=== PATIENT | male | born 1960 | race Caucasian/White ===

== ENCOUNTER 2023-06-02 05:52 | Day surgery (SDC) | payer OTHER ==
[2023-06-01 08:33] VITALS: BP 119/65
[~2023-06-02] VITALS: Ht 182.9 cm; Wt 100.0 kg
--- NOTE | ~2023-06-02 | OR ---
[facility] [address] [facility] [place] [place] [address] Draft DATE OF OPERATION: 06/02/2023 SURGEON: Abdi Torrez MD, PH.D. PREOPERATIVE DIAGNOSIS: Prostate adenocarcinoma. POSTOPERATIVE DIAGNOSIS: Prostate adenocarcinoma. PROCEDURE: Rectal ultrasound-guided implantation of radioactive iodine-125 seeds into the prostate gland. ANESTHESIA: General. ESTIMATED BLOOD LOSS: Minimal. COMPLICATIONS: None. ANTIBIOTICS: IV levofloxacin. INDICATIONS: Osman Woody is a 62-year-old gentleman who was recently diagnosed with a stage T2c, Gordon grade 4+4=8, PSA 9.09 prostate adenocarcinoma. He was treated with neoadjuvant and concurrent hormone therapy along with external beam radiation to a dose of 45 Gy to the pelvic lymph nodes, seminal vesicles, and prostate gland ending on May 16, 2023. ScapeOAR Hydrogel was also placed between the prostate gland and rectum prior to the start of his radiation. He has elected to proceed with a radioactive seed implant boost. Prescription dose: 110 Gy with iodine-125 seeds with 0.258 mCi seeds. OPERATIVE DESCRIPTION: Following induction of adequate anesthesia, the patient was placed in the treatment planning to dorsal lithotomy position. The perineum was prepped with Betadine and a Garcia catheter was inserted into the bladder without difficulty. The scrotum was elevated onto the abdominal wall and secured with Ioban. The fixation support system PATIENT NAME: OSMAN WOODY OPERATIVE REPORT DATE OF : 62 REPORT #: [id number] PHYSICIAN: ABDI TORREZ MD PCP: LIZ GALICIA PA-C REPORT IS CONFIDENTIAL AND NOT TO BE RELEASED WITHOUT AUTHORIZATION [facility] [address] [place], [place] [address] Draft was fixed to the table and the ultrasound probe was affixed to the system. Transrectal ultrasound examination of the prostate was performed with a 6 megahertz probe, taking sagittal and transverse views to localize the prostate gland and to make sure the images conformed to the preoperative plan. Once the proper angulation and position were obtained, the apparatus was fixed in place. The mormon was then attached to the apparatus. Then, individual preloaded needles were inserted, one needle at a time through the template and perineal skin and into the prostate gland according to the preoperative plan. Each individual needle was identified on the ultrasound images and inserted into position as close as possible to the pretreatment plan on axial images. Two anchor needles were placed initially to help stabilize the prostate gland. Then, starting anteriorly, one row of needles were placed first. The proper depth of each needle was confirmed on sagittal images and also by measuring the distance from the template to the hub of each needle with a ruler. Then, needles were slowly withdrawn with the stylet in place so that stranded seeds were placed in the prostate gland in the proper position. Then, subsequently, rows of needles were placed, one at a time with placement of all the seeds from each row before proceeding to the next row. AP pelvic x-rays were taken periodically to confirm the proper position of the radioactive seeds. The treatment plan called for 72 seeds to be implanted, and a total of 72 seeds were placed into the prostate gland using a total of 20 needles for a total activity of 118.57 mCi. There was minimal bony interference encountered with the anterior needles, but this resolved after we repositioned his legs in a more exaggerated lithotomy position. Following the insertion of the seeds, an AP pelvic x-ray was taken, which revealed seeds to be in the proper position within the pelvis. The patient then had a cystoscopy performed by Dr. Banks (see separate operative report) with no seeds seen in the urethra or bladder. The patient tolerated the procedure well and was taken to the recovery room in good condition. The patient will have a voiding trial prior to discharge. The patient will follow up with me in one month and will also have a CT scan of the pelvis performed for dosimetric evaluation. He was told to phone our office if he has any difficulties or problems. CONDITION: Stable. PATIENT NAME: OSMAN WOODY OPERATIVE REPORT DATE OF : 62 REPORT #: [id number] PHYSICIAN: ABDI TORREZ MD PCP: LIZ GALICIA PA-C REPORT IS CONFIDENTIAL AND NOT TO BE RELEASED WITHOUT AUTHORIZATION [address] [address] [place] Abdi Torrez MD, PH.D. JARAD/MODL /[id number] Copies: ~ PATIENT NAME: OSMAN WOODY KENYON OPERATIVE REPORT DATE OF : 62 REPORT #: [id number] PHYSICIAN: ABDI TORREZ MD PCP: LIZ GALICIA PA-C REPORT IS CONFIDENTIAL AND NOT TO BE RELEASED WITHOUT AUTHORIZATION
[~2023-06-02 05:52] MED LIST: COZAAR25 MG PO; DICLOFENAC SODI75 MG PO; HYDROCODON-ACE1 EA10 PO; LOSARTAN POTASS50 MG PO; TAMSULOSIN HCL0.4 MG PO
[2023-06-02 06:25] VITALS: BP 141/71
--- NOTE | 2023-06-02 10:12 | NUR ---
06/02/23 1012 Sheets,[place] 0957 PT ARRIVED TO PACU ON 6L VIA MASK, PT SNORING AND JAW THRUST USED OFF AND ON TO MAINTAIN AIRWAY. 1002 PT WOKE TO TACTILE STIMULI AND OPENED HIS EYES. PT REORIENTED TO PACU, 1004 O2 MASK REMOVED AND PT REACHING FOR HIS FACE. PT DENIES PAIN AND NAUSEA. 1010 PLAN OF CARE DISCUSSED, PT WAKES OFF AND ON.
[2023-06-02 10:24] VITALS: BP 100/53
--- NOTE | 2023-06-02 10:33 | NUR ---
LE 1025 PATIENT BACK TO ROOM 5. VITAL SIGNS COMPLETE. PATIENT DROWSY BUT ORIENTED. BREATHING EQUAL AND UNLABORED. OXYGEN SATURATIONS ABOVE 90% ON ROOM AIR. PATIENT DENIES PAIN AT THIS TIME. PATIENT STATES "I AM A LITTLE BIT DIZZY BUT NOT NASEATED." PATIENT HAS NO DRAINAGE AT SURGICAL SITE AT THIS TIME. PATIENT AT BEDSIDE. IVF INFUSING. SCD'S ON. CALL LIGHT WITHIN REACH NO FUTHER NEEDS. NO QUESTIONS AT THIS TIME.
[2023-06-02 11:20] VITALS: BP 109/59
--- NOTE | 2023-06-02 12:32 | NUR ---
LE 1115 PATIENT ABLE TO AMBULATE TO THE RESTROOM. PATIENT VOIDED CLEAR AND YELLOW URINE 250 MLS. PATIENT AMBULATED BACK AND TOLERATED IT WELL. PATIENT DENIES PAIN OR BEING NAUSEATED. LE 1135 PATIENT HAS MET DISCHARGE CRITERIA. IV D/C'D WNL. DISCHARGE INSTRUCTIONS GIVEN AND UNDERSTOOD. NO FUTHER NEEDS. PATIENT WAS WHEELED OUT OF THE FACILITY TO PRIVATE AUTO. NO QUESTIONS AT THIS TIME.
--- NOTE | 2023-06-02 14:07 | OR ---
[facility] [address] [place], [place] [address] Signed DATE OF OPERATION: 06/02/2023 SURGEON: Kamar Cm MD PREOPERATIVE DIAGNOSES: 1. Prostate cancer. 2. Need for diagnostic cystoscopy immediately after undergoing brachytherapy for prostate cancer. POSTOPERATIVE DIAGNOSIS: 1. Prostate cancer. 2. Need for diagnostic cystoscopy immediately after undergoing brachytherapy for prostate cancer. 3. No evidence of foreign body present within the bladder or urethra. NAME OF PROCEDURE: Diagnostic cystourethroscopy. ANESTHESIA: General. ESTIMATED BLOOD LOSS: None. COMPLICATIONS: None. SPECIMENS: None. DRAINS: None. INDICATIONS FOR PROCEDURE: Mr. Woody is a very pleasant 62-year-old gentleman, who was diagnosed with prostate cancer earlier this year. He is now currently be being treated by Dr. Don Torrez, and has elected to undergo brachytherapy this morning. I met with him this morning and consented him for diagnostic cystoscopy, which will be performed after the brachytherapy treatment is completed to rule out the presence of any potential residual radioactive seed present within either the bladder or the urethra. He has consented to undergo the Electronically Signed By: KAMAR CM MD 06/02/23 1407 PATIENT NAME: ESVIN WOODY OPERATIVE REPORT DATE OF : 62 REPORT #: [id number] PHYSICIAN: KAMAR CM MD PCP: LIZ GALICIA PA-C REPORT IS CONFIDENTIAL AND NOT TO BE RELEASED WITHOUT AUTHORIZATION [facility] [address], [place] [address] Signed procedure. OPERATIVE FINDINGS: 1. On cystoscopy, there was no evidence of any suspicious masses, lesions, or stones. In particular, there is no evidence of any radioactive seed or other material within the bladder or the urethra. There is diffuse grade 1-2 bladder wall trabeculation present. Bilateral ureteral orifices are noted to be in their normal anatomic location and effluxing clear urine. 2. Ureteroscopy reveals no evidence of any obvious median lobe. There is some mild lateral lobe hypertrophy present. No evidence of any urethral stricture or stenosis. DESCRIPTION OF PROCEDURE: After informed consent was obtained, the patient has taken back to the operating room where he underwent brachytherapy seed placement. He is now still under general anesthetic and his genitalia have been prepped and draped in a standard sterile fashion. Using a flexible cystoscope, I inserted the camera through the patient's urethra and into the bladder under direct visualization. Panendoscopic views of bladder were then obtained. Please see above findings. I then slowly withdrew the camera to get a better look at the bladder neck and prostatic urethra. Please see above findings. The diagnostic cystoscope was then completely removed from the patient's bladder. I did leave some irrigation fluid present behind within the bladder to allow the patient to void on his own after the procedure. The procedure was then terminated. The patient tolerated the procedure well without any complication. He will now be transferred to the postanesthesia care unit in stable condition. MD ANGELICA Santos/KATRIN /[id number] Copies: ~ Electronically Signed By: KAMAR CM MD 06/02/23 1407 PATIENT NAME: BONGESVIN KENYON OPERATIVE REPORT DATE OF : 62 REPORT #: [id number] PHYSICIAN: KAMAR CM MD PCP: LIZ GALICIA PA-C REPORT IS CONFIDENTIAL AND NOT TO BE RELEASED WITHOUT AUTHORIZATION
== END 2023-06-02 11:35 | disposition home or self-care (01) ==
LOC: OPS 05:52 → DS 05:52 → US 07:00 → EDSTATUS 07:00 → OPS 07:00 → NUC 07:30 → OPS 11:35
PROVIDERS: Urology; ATTEND Radiology Radiation Oncology
PROC: 0TJB8ZZ Inspection of Bladder, Via Natural or Artificial Opening Endoscopic (ICD-10-PCS; principal; 2023-06-02 07:30)
PROC: 0VH071Z Insertion of Radioactive Element into Prostate, Via Natural or Artificial Opening (ICD-10-PCS; 2023-06-02 07:30)
DX: C61 Malignant neoplasm of prostate (principal)
CPT/HCPCS: 00910; 76000; 76873; 77470; C2638; J0131; J1956; J2250; J2704; J3490; J7121